=== PATIENT | female | born 1970 | race Caucasian/White ===

== ENCOUNTER 2017-02-15 14:28 | Emergency (ER) | payer SELFPAY ==
[2017-02-15 14:40] VITALS: BP 121/77
--- NOTE | 2017-02-15 15:02 | UC ---
Throat Pain/Nasal Jeancarlos HPI - HPI Summary HPI Summary: 47 y/o female presents to the urgent care c/o sinus pressure and b/l ear pressure with itchy eyes for the past 2 days. She states she feels a burning sensation in her back. Patient denies fever, sore throat, SOB, N/V/C or chest pain. Patient states she usually have this feeling when she gets bronchitis. - History of Current Complaint Chief Complaint: UCRespiratory Stated Complaint: RESP COMPLAINT Time Seen by Provider: 02/15/17 14:43 Hx Obtained From: Patient Hx Last Menstrual Period: 01/05/17 ?: No Onset/Duration: Gradual Onset, Still Present Pain Intensity: 0 Pain Scale Used: 0-10 Numeric Cough: Nonproductive Associated Signs & Symptoms: Negative: Dysphagia, Wheezing, Fever, Vomiting, Rash Related History: Seasonal Allergies - Epiglottits Risk Factors Epiglottis Risk Factors: Negative - Allergies/Home Medications Allergies/Adverse Reactions: Allergies Allergy/AdvReac Type Severity Reaction Status Date / Time No Known Allergies Allergy Verified 02/15/17 14:34 PMH/Surg Hx/FS Hx/Imm Hx Previously Healthy: Yes Endocrine History Of: Denies: Diabetes, Thyroid Disease Cardiovascular History Of: Denies: Cardiac Disorders, Hypertension Respiratory History Of: Denies: COPD, Asthma GI/ History Of: Denies: Ulcer Cancer History Of: Denies: Breast Cancer - Surgical History Surgical History: Yes Surgery Procedure, Year, and Place: [place] 1990. tubal ligation - Family History Known Family History: Positive: None, Hypertension, Diabetes, Other - hypothyrodism Family History: no reported cardiovascular issues in family lineage - Social History Alcohol Use: Rare Substance Use Type: None Smoking Status (MU): Light Every Day Tobacco Smoker Amount Used/How Often: about 4 sig/day Have You Smoked in the Last Year: No Review of Systems Constitutional: Negative Skin: Negative Eyes: Negative ENT: Other - sinus pressure and b/l ear pressure Respiratory: Negative - Patient states she feel like a burning sensation in her back, She states she usually has this sensation when she get bronchitis. Cardiovascular: Negative Gastrointestinal: Negative Motor: Negative Neurovascular: Negative Musculoskeletal: Negative Neurological: Negative Psychological: Negative All Other Systems Reviewed And Are Negative: Yes Physical Exam Triage Information Reviewed: Yes Appearance: Well-Appearing, No Pain Distress, Well-Nourished Vital Signs: Initial Vital Signs Temp 97.3 F 02/15/17 14:34 Pulse 59 02/15/17 14:34 Resp 16 02/15/17 14:34 BP 121/77 02/15/17 14:34 Pulse Ox 98 02/15/17 14:34 Vital Signs Reviewed: Yes Eye Exam: Normal Eyes: Positive: Conjunctiva Clear ENT Exam: Normal ENT: Positive: Normal ENT inspection, Hearing grossly normal, Pharyngeal erythema - mild, TMs normal, Other: - mild tenderness over the maxillary sinusis on palpation Dental Exam: Normal Neck exam: Normal Neck: Positive: Supple, Nontender, No Lymphadenopathy Respiratory Exam: Normal Respiratory: Positive: Chest non-tender, Lungs clear, Normal breath sounds Cardiovascular Exam: Normal Cardiovascular: Positive: No Murmur, Pulses Normal Abdominal Exam: Normal Abdomen Description: Positive: Nontender, No Organomegaly Neurological Exam: Normal Psychological Exam: Normal Skin Exam: Normal Throat Pain/Nasal Course/Dx - Differential Dx/Diagnosis Differential Diagnosis/HQI/PQRI: Laryngitis, Otitis Media, Pharyngitis, Sinusitis Provider Diagnoses: Allergic rhinits Discharge - Discharge Plan Condition: Stable Disposition: HOME Prescriptions: Cetirizine* [ZyrTEC 10 MG TAB*] 10 mg PO DAILY #30 tab Patient Education Materials: Allergic Rhinitis (ED) Referrals: Yamila Campos [Primary Care Provider] - Additional Instructions: Please take medications as instructed and try to avoid allergens. Increase fluid intake. If symptoms worsen please return to the urgent care or follow up with your PCP for further treatment.
== END 2017-02-15 15:20 | disposition home or self-care (01) ==
LOC: UCEAST 14:28
DX: J30.9 Allergic rhinitis, unspecified (principal); F17.210 Nicotine dependence, cigarettes, uncomplicated
CPT/HCPCS: 99212; G0463

== ENCOUNTER 2017-04-15 08:41 | Emergency (ER) | payer OTHER ==
[2017-04-15 09:08] VITALS: BP 124/88
--- NOTE | 2017-04-15 12:28 | UC ---
david Mendez Timothy, scribed for Idalia Sosa DO on 04/15/17 at 0916 . Abdominal Pain Female HPI - HPI Summary HPI Summary: Michelle Gregory is a 47 yo female presenting to [facility] with 5/10 RLQ sharp, intermittent pain radiating into her right hip since this morning without N/V. She states that the pain sometime gets up to an 8/10. She states she did not notice the pain when she woke up, but it began suddenly at 0600 this morning. She notes increased pain when driving due to pushing on the pedal and hitting bumps. She denies diarrhea, SOB, CP, fever, chills, diaphoresis, urinary Sx. Her MHx includes tubal ligation, cholecystectomy, tobacco use. Her LNMP was 7/15 , and previously 3 months before that. - History of Current Complaint Chief Complaint: UCAbdominalPain Stated Complaint: RT SIDE INJURY Time Seen by Provider: 04/15/17 09:10 Hx Obtained From: Patient Hx Last Menstrual Period: december Onset/Duration: Sudden Onset, Lasting Hours, Still Present Timing: Constant Severity Initially: Moderate Severity Currently: Moderate Pain Intensity: 5 Pain Scale Used: 0-10 Numeric Location: Discrete At: RLQ Radiates: Yes Radiates to: Other - right hip Character: Sharp Aggravating Factor(s): Other: - using gas pedal, hitting bumps in the road Associated Signs and Symptoms: Negative: Fever, Chest Pain, Urinary Symptoms, Nausea, Vomiting - Risk Factors Ectopic Risk Factor: Maternal Age ^ 30, Tubal Ligation Ovarian Torsion Risk Factor: Reproductive Age, Tubal Ligation Allergies/Adverse Reactions: Allergies Allergy/AdvReac Type Severity Reaction Status Date / Time No Known Allergies Allergy Verified 04/15/17 09:08 Home Medications: Home Medications Fexofenadine (NF) [Karina (NF)] 60 mg PO 04/15/17 [History] PMH/Surg Hx/FS Hx/Imm Hx GI/ History: Gall Bladder Disease - Surgical History Surgical History: Yes Surgery Procedure, Year, and Place: [place] 1990. tubal ligation - Family History Known Family History: Positive: Cardiac Disease, Hypertension, Diabetes, Other - hypothyrodism Family History: no reported cardiovascular issues in family lineage - Social History Alcohol Use: Occasionally Substance Use Type: None Smoking Status (MU): Light Every Day Tobacco Smoker Amount Used/How Often: about 4 sig/day Have You Smoked in the Last Year: No Cessation Counseling: Patient Advised to Stop Review of Systems Constitutional: Negative Skin: Negative Eyes: Negative ENT: Negative Respiratory: Negative Cardiovascular: Negative Gastrointestinal: Abdominal Pain Genitourinary: Negative Motor: Negative Neurovascular: Negative Musculoskeletal: Negative Neurological: Negative Psychological: Negative All Other Systems Reviewed And Are Negative: Yes Physical Exam Triage Information Reviewed: Yes Appearance: Well-Appearing, Well-Nourished, Pain Distress Vital Signs: Initial Vital Signs Temp 97.9 F 04/15/17 09:04 Pulse 68 04/15/17 09:04 Resp 20 04/15/17 09:04 BP 124/88 04/15/17 09:04 Pulse Ox 100 04/15/17 09:04 Vital Signs Reviewed: Yes Eyes: Positive: Conjunctiva Clear. Negative: Discharge ENT: Positive: Hearing grossly normal. Negative: Muffled/hoarse voice Neck exam: Normal Neck: Positive: Supple Respiratory: Positive: Lungs clear, Normal breath sounds, No respiratory distress Cardiovascular: Positive: RRR, No Murmur Abdomen Description: Positive: Soft. Negative: Nontender - tenderness RLQ, CVA Tenderness (R), CVA Tenderness (L) Musculoskeletal Exam: Normal Musculoskeletal: Positive: Strength Intact, ROM Intact Neurological: Positive: Alert, Muscle Tone Normal Psychological Exam: Normal Psychological: Positive: Age Appropriate Behavior Skin Exam: Normal Skin: Positive: Other - warm, dry, normal skin color. Negative: rashes Re-Evaluation - Re-Evaluation First Eval Re-Evaluation Time: 09:53 Change: Unchanged Comment: Discussed UA and HCG results with Pt. She is agreeable to current course of Tx. Abd Pain Female Course/Dx - Course Course Of Treatment: Michelle Gregory is a 47 yo female presenting to [facility] with 8/ 10 RLQ abd pain radiating to her hip since this morning, denying N/V. Pt medication list reviewed this visit. Pt counseled to quit smoking. After clinical examination and review of her UA results, she will be transferred to [facility] by private car AMA for further observation, evaluation, and treatment of her RLQ pain r/o appendicitis. EMS for transport were offered, and Pt declined. She was made aware of the risks of this decision. She was counseled to present by ambulance. - Differential Dx/Diagnosis Differential Diagnosis: Appendicitis, Ectopic , Ovarian Cyst, , Renal Colic, Urinary Tract Infection Provider Diagnoses: RLQ pain r/o appendicitis - Physician Notification/Consults Discussed Care of Patient With: Alyssa (charge nurse) - discussed Pt condition, Pt will be seen in [facility] Time Discussed With Above Provider: 09:56 Discharge - Discharge Plan Condition: Stable Disposition: TRANS HIGHER LVL OF CARE FAC Discharge Disposition Comment: transfer to [facility] by private car Referrals: Yamila Campos [Primary Care Provider] - The documentation as recorded by the david kelly Timothy accurately reflects the service I personally performed and the decisions made by me, Idalia Sosa DO.
== END 2017-04-15 10:00 | disposition short-term general hospital (02) ==
LOC: UCEAST 08:41
DX: R10.31 Right lower quadrant pain (principal); Z32.02 Encounter for pregnancy test, result negative; F17.210 Nicotine dependence, cigarettes, uncomplicated
CPT/HCPCS: 81003; 84702; 99212; G0463

== ENCOUNTER 2017-04-15 10:23 | Emergency (ER) | payer OTHER ==
[2017-04-15 11:46] LABS: Urine Bilirubin Negative (Negative); Urine Glucose Negative (Negative); Urine Nitrite Negative (Negative)
--- NOTE | 2017-04-15 12:00 | ED ---
Back Pain - HPI Summary HPI Summary: Patient presents to ED with right sided hip and pelvic pain s/p fall which has progressively gotten worse over 2 weeks. She denies urinary symptoms. The pain this morning was located suprapubically and over the right hip bone. The last 2 weeks, she has had pain in the tailbone that radiated to the right side. Denies other symptoms. No history of kidney stones. She denies urinary symptoms, upper back or neck pain. She did not hit her head, no LOC. She has never injured the area before. Pain is 8/10, constant, worse with sitting, better with standing. No internal rotation of the leg noted. Denies taking medication, no allergies and is otherwise healthy. Denies bladder or bowel dysfunction. - History of Current Complaint Chief Complaint: EDGeneral Stated Complaint: PELVIC PAIN COMMING FROM [facility] Time Seen by Provider: 04/15/17 11:00 Hx Obtained From: Patient Hx Last Menstrual Period: december Onset/Duration: Sudden Onset Onset/Duration: Started Weeks Ago Timing: Constant Back Pain Location: Is Diffuse Severity Initially: Moderate Severity Currently: Moderate Pain Intensity: 8 Pain Scale Used: 0-10 Numeric Character: Aching, Throbbing Aggravating Symptom(s): Movement, Bending, Walking Alleviating Symptom(s): Rest, Position Associated Signs And Symptoms: Positive: Negative - Risk Factors AAA Risk Factors: Negative TAD Risk Factors: Negative Cauda Equina Risk Factors: Negative Epidural Abscess Risk Factors: Negative - Allergies/Home Medications Allergies/Adverse Reactions: Allergies Allergy/AdvReac Type Severity Reaction Status Date / Time No Known Allergies Allergy Verified 04/15/17 09:08 PMH/Surg Hx/FS Hx/Imm Hx Previously Healthy: Yes Endocrine/Hematology History: Denies: Hx Diabetes, Hx Thyroid Disease Cardiovascular History: Denies: Hx Hypertension Respiratory History: Denies: Hx Asthma, Hx Chronic Obstructive Pulmonary Disease (COPD) GI History: Denies: Hx Ulcer - Cancer History Hx Chemotherapy: No Hx Radiation Therapy: No - Surgical History Surgery Procedure, Year, and Place: [place] 1990. tubal ligation - Immunization History Hx Pertussis Vaccination: No Immunizations Up to Date: Unable to Obtain/Confirm Infectious Disease History: Denies: Hx Hepatitis, Hx Human Immunodeficiency Virus (HIV), History Other Infectious Disease, Traveled Outside the [place] in Last 30 Days - Family History Known Family History: Positive: None, Hypertension, Diabetes, Other - hypothyrodism Family History: no reported cardiovascular issues in family lineage - Social History Occupation: Employed Full-time Lives: With Family Alcohol Use: Occasionally Hx Substance Use: No Substance Use Type: Reports: None Hx Tobacco Use: Yes Smoking Status (MU): Light Every Day Tobacco Smoker Amount Used/How Often: about 4 sig/day Have You Smoked in the Last Year: No Review of Systems Constitutional: Negative Eyes: Negative Cardiovascular: Negative Respiratory: Negative Positive: other - suprapubic pain Positive: Arthralgia, Myalgia Neurological: Negative Psychological: Normal All Other Systems Reviewed And Are Negative: Yes Physical Exam Triage Information Reviewed: Yes Vital Signs On Initial Exam: Initial Vitals Temp Pulse Resp BP Pulse Ox 96.8 F 54 18 117/76 100 04/15/17 10:25 04/15/17 10:25 04/15/17 10:25 04/15/17 10:25 04/15/17 10:25 Vital Signs Reviewed: Yes Appearance: Positive: Well-Appearing, Well-Nourished Skin: Positive: Warm, Skin Color Reflects Adequate Perfusion Head/Face: Positive: Normal Head/Face Inspection Eyes: Positive: Normal, ELSIE, Conjunctiva Clear Neck: Positive: Supple, Nontender, No Lymphadenopathy Respiratory/Lung Sounds: Positive: Clear to Auscultation, Breath Sounds Present Cardiovascular: Positive: Normal, RRR Musculoskeletal: Positive: Pain @ - right hip on deep palpation; suprapubic tenderness Neurological: Positive: Sensory/Motor Intact, Alert, Oriented to Person Place, Time, Speech Normal Psychiatric: Positive: Normal Diagnostics - Vital Signs Vital Signs Temp Pulse Resp BP Pulse Ox 04/15/17 10:25 96.8 F 54 18 117/76 100 - Laboratory Lab Results: Lab Results 04/15/17 Range/Units 11:30 Urine Color Yellow Urine Appearance Clear Urine pH 6.0 (5-9) Ur Specific [place] 1.010 (1.010-1.030) Urine Protein Negative (Negative) Urine Ketones Trace H (Negative) Urine Blood Negative (Negative) Urine Nitrate Negative (Negative) Urine Bilirubin Negative (Negative) Urine Urobilinogen Negative (Negative) Ur Leukocyte Esterase Negative (Negative) Urine Glucose Negative (Negative) Lab Statement: Any lab studies that have been ordered have been reviewed, and results considered in the medical decision making process. Back Pain Course/Dx - Course Course Of Treatment: Patient sent to xray of hip and pelvis. Denies numbness, tingling, temperature or color changes to the area. Ambulating well. FINDINGS: Mild degenerative changes of the right hip include narrowing of the joint space and mild. sclerotic change of the acetabular roof. On the frog-leg view there is faint osteophyte. adjacent to the superior margin of the acetabulum. The bones are otherwise well corticated. and appropriately aligned. Incidentally noted are surgical clips in the pelvis likely. secondary to tubal ligation. NO acute findings. Encouarged to follow up with PCP or return to ED for worsening symptoms. Return precautions given. Patient understands and agrees with plan. Ok for discharge. - Diagnoses Differential Diagnosis/HQI/PQRI: Positive: Fracture, Strain, Sprain Provider Diagnoses: Contusion Discharge - Discharge Plan Condition: Stable Disposition: HOME Patient Education Materials: Contusion in Adults (ED) Forms: *Work Release Referrals: Yamila Campos [Primary Care Provider] - Additional Instructions: Ibuprofen 600mg three times daily with meals for discomfort. Return to ED if symptoms worsen or fail to improve, notice worsening swelling, warmth or redness around the joint, develop fever, or pain is uncontrolled with OTC medications. Moist heat to the area for comfort. Warm showers or baths may improve symptoms. It is important to remain mobile as tolerated to prevent stiffening of the joints and delay healing. Follow up with your PCP. If symptoms remain for > 6 weeks, please seek special medical attention from an orthopedic physician.
--- NOTE | 2017-04-15 13:17 | RAD ---
INDICATION: Pelvic and right hip pain 2 weeks after a fall COMPARISON: None TECHNIQUE: 3 views of the right hip were obtained. FINDINGS: Mild degenerative changes of the right hip include narrowing of the joint space and mild sclerotic change of the acetabular roof. On the frog-leg view there is faint osteophyte adjacent to the superior margin of the acetabulum. The bones are otherwise well corticated and appropriately aligned. Incidentally noted are surgical clips in the pelvis likely secondary to tubal ligation. IMPRESSION: Mild degenerative changes of the right hip without radiographically apparent fracture or dislocation. Negative for If the patient's symptoms persist follow-up imaging is recommended.
[2017-04-15 13:22] VITALS: BP 123/87
== END 2017-04-15 13:39 | disposition home or self-care (01) ==
LOC: ED 10:23
DX: S70.01XA Contusion of right hip, initial encounter (principal); W19.XXXA Unspecified fall, initial encounter; Y93.9 Activity, unspecified; Y92.9 Unspecified place or not applicable; M16.11 Unilateral primary osteoarthritis, right hip; F17.210 Nicotine dependence, cigarettes, uncomplicated
CPT/HCPCS: 81003; 99282

== ENCOUNTER 2017-08-02 10:29 | Emergency (ER) | payer OTHER ==
[2017-08-02 10:41] VITALS: BP 123/78
--- NOTE | 2017-08-09 14:27 | UC ---
Respiratory Complaint HPI - HPI Summary HPI Summary: Patient presents with complaints of head cold, sinus congestion, and chest congestion and cough. Complains of sinus pain and pressure with sinus drainage. She reports thick yellow-green nasal drainage. - History of Current Complaint Chief Complaint: UCGeneralIllness Stated Complaint: SINUS Time Seen by Provider: 08/02/17 11:48 Hx Obtained From: Patient Hx Last Menstrual Period: 07/07/17 Onset/Duration: Gradual Onset, Lasting Days Timing: Constant Severity Initially: Mild Severity Currently: Moderate Pain Intensity: 2 Pain Scale Used: 0-10 Numeric Character: Cough: Nonproductive Associated Signs And Symptoms: Positive: URI, Nasal Congestion, Sinus Discomfort - Risk Factors Pulmonary Embolism Risk Factors: Negative Cardiac Risk Factors: Negative Pseudomonas Risk Factors: Negative Tuberculosis Risk Factors: Negative - Allergies/Home Medications Allergies/Adverse Reactions: Allergies Allergy/AdvReac Type Severity Reaction Status Date / Time No Known Allergies Allergy Verified 08/07/17 08:20 PMH/Surg Hx/FS Hx/Imm Hx Previously Healthy: Yes - Surgical History Surgical History: Yes Surgery Procedure, Year, and Place: [place] 1990. tubal ligation - Family History Known Family History: Positive: None, Cardiac Disease, Hypertension, Diabetes, Other - hypothyrodism Family History: no reported cardiovascular issues in family lineage - Social History Occupation: Employed Full-time Lives: Alone Alcohol Use: Occasionally Substance Use Type: None Smoking Status (MU): Former Smoker Amount Used/How Often: about 4 sig/day Have You Smoked in the Last Year: No Review of Systems Constitutional: Negative Skin: Negative Eyes: Negative ENT: Ear Ache, Nasal Discharge, Sinus Congestion, Sinus Pain/Tenderness Respiratory: Negative Cardiovascular: Negative Gastrointestinal: Negative Genitourinary: Negative Motor: Negative Neurovascular: Negative Musculoskeletal: Negative All Other Systems Reviewed And Are Negative: Yes Physical Exam Triage Information Reviewed: Yes Appearance: Well-Appearing Vital Signs: Initial Vital Signs Temp 98 F 08/02/17 10:39 Pulse 78 08/02/17 10:39 Resp 17 08/02/17 10:39 BP 123/78 08/02/17 10:39 Pulse Ox 100 08/02/17 10:39 Vital Signs Reviewed: Yes Eye Exam: Normal ENT: Positive: Nasal congestion, Nasal drainage, Sinus tenderness Neck exam: Normal Neck: Positive: 1 Respiratory Exam: Normal Cardiovascular Exam: Normal Abdominal Exam: Normal Musculoskeletal Exam: Normal Neurological Exam: Normal Psychological Exam: Normal Skin Exam: Normal UC Diagnostic Evaluation - Laboratory O2 Sat by Pulse Oximetry: 100 Respiratory Course/Dx - Course Course Of Treatment: Patient treated for sinusitis with augmentin. Nontoxic appearance, normal vital signs and afebrile. - Differential Dx/Diagnosis Differential Diagnosis/HQI/PQRI: Sinusitis Provider Diagnoses: sinusitis Discharge - Discharge Plan Condition: Stable Disposition: HOME Prescriptions: Amoxicillin/Clavulanate TAB* [Augmentin TAB 500 mg*] 500 mg PO BID #20 tab Patient Education Materials: Sinusitis (ED) Referrals: Yamila Campos [Primary Care Provider] -
--- NOTE | 2017-08-09 20:20 | UC ---
Respiratory Complaint HPI - HPI Summary HPI Summary: Patient presents with complaints of head cold, sinus congestion, and chest congestion and cough. Complains of sinus pain and pressure with sinus drainage. She reports thick yellow-green nasal drainage x one day. She denies fever, chills, chest pain, abdominal pain, nausea, vomiting or diarrhea. - History of Current Complaint Chief Complaint: UCGeneralIllness Stated Complaint: SINUS Time Seen by Provider: 08/02/17 11:48 Hx Obtained From: Patient Hx Last Menstrual Period: 07/07/17 Onset/Duration: Gradual Onset, Lasting Days Timing: Constant Severity Initially: Mild Severity Currently: Moderate Pain Intensity: 2 Pain Scale Used: 0-10 Numeric Character: Cough: Nonproductive Associated Signs And Symptoms: Positive: URI, Nasal Congestion, Sinus Discomfort - Risk Factors Pulmonary Embolism Risk Factors: Negative Cardiac Risk Factors: Negative Pseudomonas Risk Factors: Negative Tuberculosis Risk Factors: Negative - Allergies/Home Medications Allergies/Adverse Reactions: Allergies Allergy/AdvReac Type Severity Reaction Status Date / Time No Known Allergies Allergy Verified 08/07/17 08:20 PMH/Surg Hx/FS Hx/Imm Hx Previously Healthy: Yes - Surgical History Surgical History: Yes Surgery Procedure, Year, and Place: [email or web address]. tubal ligation - Family History Known Family History: Positive: None, Cardiac Disease, Hypertension, Diabetes, Other - hypothyrodism Family History: no reported cardiovascular issues in family lineage - Social History Occupation: Employed Full-time Lives: Alone Alcohol Use: Occasionally Substance Use Type: None Smoking Status (MU): Former Smoker Amount Used/How Often: about 4 sig/day Have You Smoked in the Last Year: No Review of Systems Constitutional: Negative Skin: Negative Eyes: Negative ENT: Ear Ache, Nasal Discharge, Sinus Congestion, Sinus Pain/Tenderness Respiratory: Negative Cardiovascular: Negative Gastrointestinal: Negative Genitourinary: Negative Motor: Negative Neurovascular: Negative Musculoskeletal: Negative All Other Systems Reviewed And Are Negative: Yes Physical Exam Triage Information Reviewed: Yes Appearance: Well-Appearing Vital Signs: Initial Vital Signs Temp 98 F 08/02/17 10:39 Pulse 78 08/02/17 10:39 Resp 17 08/02/17 10:39 BP 123/78 08/02/17 10:39 Pulse Ox 100 08/02/17 10:39 Vital Signs Reviewed: Yes Eye Exam: Normal Neck exam: Normal Neck: Positive: 1 Respiratory Exam: Normal Cardiovascular Exam: Normal Abdominal Exam: Normal Musculoskeletal Exam: Normal Neurological Exam: Normal Psychological Exam: Normal Skin Exam: Normal UC Diagnostic Evaluation - Laboratory O2 Sat by Pulse Oximetry: 100 Respiratory Course/Dx - Course Course Of Treatment: Patient treated for sinusitis with augmentin. Nontoxic appearance, normal vital signs and afebrile. - Differential Dx/Diagnosis Provider Diagnoses: bronchitis Discharge - Discharge Plan Condition: Stable Disposition: HOME Prescriptions: Amoxicillin/Clavulanate TAB* [Augmentin TAB 500 mg*] 500 mg PO BID #20 tab Patient Education Materials: Sinusitis (ED) Referrals: Yamila Campos [Primary Care Provider] -
== END 2017-08-02 12:02 | disposition home or self-care (01) ==
LOC: UCEAST 10:29
DX: J40 Bronchitis, not specified as acute or chronic (principal); Z90.49 Acquired absence of other specified parts of digestive tract; Z87.891 Personal history of nicotine dependence
CPT/HCPCS: 99212; G0463

== ENCOUNTER 2017-08-07 08:11 | Emergency (ER) | payer SELFPAY ==
[2017-08-07 08:27] VITALS: BP 140/87
--- NOTE | 2017-08-07 09:04 | UC ---
Respiratory Complaint HPI - HPI Summary HPI Summary: PT C/O ABOUT A WEEK OF SANTOS, SINUS PRESSURE/CONGESTION, DRAINAGE, COUGH, SUBJECTIVE FEVER. SEEN HERE 5 DAYS AGO AND RX AUGMENTIN FOR SINUSITIS. STATES SHE DOESN'T THINK IT IS WORKING. ALTHOUGH SHE DOES ADMIT THAT FEVER SEEMS RESOLVED. NO N/V. - History of Current Complaint Chief Complaint: UCRespiratory Stated Complaint: headache, and sinus pressure Time Seen by Provider: 08/07/17 08:40 Hx Obtained From: Patient Hx Last Menstrual Period: 07/07/17 Onset/Duration: Gradual Onset, Lasting Days, Still Present Timing: Constant Severity Initially: Moderate Severity Currently: Moderate Pain Intensity: 8 Pain Scale Used: 0-10 Numeric Character: Cough: Nonproductive Aggravating Factors: Nothing Alleviating Factors: Nothing Associated Signs And Symptoms: Positive: Fever, Chills, URI, Nasal Congestion, Sinus Discomfort. Negative: Dyspnea, Wheezing, Hemoptysis, Dizziness, Calf Pain , Calf Swelling - Allergies/Home Medications Allergies/Adverse Reactions: Allergies Allergy/AdvReac Type Severity Reaction Status Date / Time No Known Allergies Allergy Verified 08/07/17 08:20 PMH/Surg Hx/FS Hx/Imm Hx Previously Healthy: Yes - Surgical History Surgical History: Yes Surgery Procedure, Year, and Place: [place] 1990. tubal ligation - Family History Known Family History: Positive: Cardiac Disease, Hypertension, Diabetes, Other - hypothyrodism - Social History Alcohol Use: Occasionally Substance Use Type: None Smoking Status (MU): Current Some Day Smoker Amount Used/How Often: about 4 cig/day Have You Smoked in the Last Year: No Review of Systems Constitutional: Fever, Fatigue ENT: Nasal Discharge, Sinus Congestion, Sinus Pain/Tenderness Respiratory: Cough Cardiovascular: Negative Gastrointestinal: Negative Musculoskeletal: Negative Neurological: Headache All Other Systems Reviewed And Are Negative: Yes Physical Exam Triage Information Reviewed: Yes Appearance: Well-Appearing, No Pain Distress, Well-Nourished Vital Signs: Initial Vital Signs Temp 97.4 F 08/07/17 08:20 Pulse 75 08/07/17 08:20 Resp 16 08/07/17 08:20 BP 140/87 08/07/17 08:20 Pulse Ox 98 08/07/17 08:20 Vital Signs Reviewed: Yes Eyes: Positive: Conjunctiva Clear ENT: Positive: Hearing grossly normal, Pharynx normal, TMs normal Neck: Positive: Supple, Nontender, No Lymphadenopathy Respiratory Exam: Normal Cardiovascular Exam: Normal Abdomen Description: Positive: Soft Musculoskeletal: Positive: No Edema Neurological: Positive: Alert Psychological: Positive: Age Appropriate Behavior Skin: Negative: rashes UC Diagnostic Evaluation - Laboratory O2 Sat by Pulse Oximetry: 98 Respiratory Course/Dx - Differential Dx/Diagnosis Provider Diagnoses: ACUTE SINUSITIS Discharge - Discharge Plan Condition: Stable Disposition: HOME Patient Education Materials: Sinusitis (ED) Forms: *Work Release Referrals: Yamila Campos [Primary Care Provider] - If Needed Additional Instructions: CONTINUE AUGMENTIN PRESCRIBED. TAKE IBUPROFEN NEEDED FOR HEADACHES. STAY WELL RESTED AND HYDRATED. TRY OTC AFRIN FOR NASAL CONGESTION. OKAY TO USE 2-3 SPRAYS IN EACH NOSTRIL UP TO 2 TIMES DAILY. DO NOT USE FOR MORE THAN 3-4 CONSECUTIVE DAYS TO PREVENT DEVELOPING REBOUND CONGESTION. YOU SHOULD CONTINUE TO IMPROVE OVER THE NEXT WEEK.
== END 2017-08-07 09:07 | disposition home or self-care (01) ==
LOC: UCEAST 08:11
DX: J01.90 Acute sinusitis, unspecified (principal)
CPT/HCPCS: 99211; G0463